=== PATIENT | male | born 1940 | race Caucasian/White ===

== ENCOUNTER 2016-10-07 10:23 | Day surgery (SDC) | payer OTHER ==
--- NOTE | ~2016-10-07 | OP ---
Record Of Operation [facility] [address] [place]. [address] NAME: GREGG MATTHEWS : 42 STATUS : REG [facility] [place] PAT#: [id number] AGE: 76 ADM/REG DATE : 10/07/16 MR#: [id number] REPORT SERV DATE: 10/07/16 DICTATED BY: SANDIE ARDON DATE: 10/07/16 REPORT STATUS : Draft TRANSCRIBED BY: MODL DATE: 10/07/16 DATE OF PROCEDURE: 10/07/2016 PREOPERATIVE DIAGNOSIS: Left 3rd digit osteomyelitis. POSTOPERATIVE DIAGNOSIS: Left 3rd digit osteomyelitis. PROCEDURE: Left 3rd digit amputation. SURGEON: Anirudh Ardon D.P.M. ANESTHESIA: General local anesthetic. ESTIMATED BLOOD LOSS: Minimal. COMPLICATIONS: None. INJECTABLES: Approximately 10 mL of a 1:1 mixture of Xylocaine plain and 0.5% Marcaine plain. MATERIALS: Include 3-0 nylon. SPECIMENS: Include 3rd digit with proximal margin. CULTURES: Include aerobic, anaerobic, acid fast, fungal, Gram stain. PROCEDURE IN DETAIL: Under mild sedation, the patient was brought to the operating room and placed on the table in supine position. Following general anesthesia, local anesthesia obtained about the patient's left foot. Left foot, ankle, and lower leg were scrubbed, prepped, and draped in usual aseptic manner. Attention was directed to the procedure. Procedure #1 is left 3rd digit amputation. Attention was directed to the patient's left 3rd digit where the probing to bone distal ulceration was visualized at the level of the distal tip of the left 3rd toe. At this time, a fishmouth sharp incision was made to the level of the distal interphalangeal joint. Sharp dissection continued down to the level of the PIPJ and sharp disarticulation ensued. All bleeders were cauterized and ligated as necessary. At this time, deep cultures were taken. There was no purulence. There was no odor. There was no necrosis noted at this level. At this time, pulse irrigation ensued and attention directed to closure. Full-thickness closure with 3-0 nylon to the incision site was performed. Specimens were sent of the 3rd toe and proximal margin which included the base of the intermediate phalanx. A well-padded sterile dressing and well-padded postoperative shoe was applied. The patient tolerated the procedure and anesthesia well, and was transferred to the recovery room with vital signs stable and vascular status intact to all toes. Following a period of postoperative monitoring, the patient will be discharged home with the following written and oral postoperative instructions. 1. Keep dressings clean, dry, and intact. Record Of Operation [facility] [address] [place]. [address] NAME: GREGG MATTHEWS : 42 STATUS : REG [facility]#: [id number] AGE: 76 ADM/REG DATE : 10/07/16 MR#: [id number] REPORT SERV DATE: 10/07/16 DICTATED BY: SANDIE ARDON DATE: 10/07/16 REPORT STATUS : Draft TRANSCRIBED BY: TAVON DATE: 10/07/16 2. Take medications as prescribed. 3. He will follow up with Dr. Ardon in 7 to 14 days. HO/TAVON Anirudh Ardon D.P.M. / [id number] CC: Vania Longoria M.D.
[~2016-10-07 10:23] MED LIST: ASAB PO; ATEN50 PO; CO Q-10200 MG PO; FLAXSEED OIL1000 MG PO; FLOMAX4 PO; HYDROCHLOROT25 MG; HYDROCHLOROT25 MG PO; HYDROCHLOROTHIAZIDE 25 MG; KRILLOIL; MIRALAX POWDER1 PKT PO; MULTIVITAMI1 PO; NORV10 PO; PREV15 PO; PRILOSEC OTC20 MG PO; PROPECIA1 MG PO; PROSCAR5 PO; VIAGRA50 MG PO; VITAMIN E; VITC500 PO; X5 PO; ZESTRIL10 MG PO; [UNRECOGNIZED DRUG - OTHER]; [UNRECOGNIZED DRUG - REMARK]
[2016-10-07 12:27] LABS: HEMATOCRIT 46.5 % (40.0-51.0); HEMOGLOBIN 15.4 g/dL (13.6-17.8)
[2016-10-07 12:40] LABS: BUN (BLOOD UREA NITROGEN) 18 MG/DL (6-23); CALCIUM, SERUM 8.6 MG/DL (8.5-10.4); CHLORIDE, SERUM 104 MMOL/L (96-112); CO2 (CARBON DIOXIDE) 28 MMOL/L (24-34); CREATININE 0.75 MG/DL (0.70-1.30); GFR AFRICAN AMERICAN 104 ML/MIN (>=60); GFR NON AFRICAN AMERICAN 90 ML/MIN (>=60); GLUCOSE, SERUM 117 MG/DL (60-99); POTASSIUM, SERUM 3.4 MMOL/L (3.5-5.3); SODIUM, SERUM 141 MMOL/L (135-148)
[2017-04-06] MEDS ORDERED: VITA10 PO (09:57)
[2017-04-06] MEDS ORDERED: VIT D3 (09:57)
[2017-04-06] MEDS ORDERED: ALEVE220 MG PO (10:32)
[2017-04-06] MEDS ORDERED: OXYCOD PO (10:33)
== END 2016-10-07 23:59 | disposition home health service (06) ==
LOC: MSC 10:23
PROVIDERS: Podiatrist Foot & Ankle Surgery
PROC: 0Y6U0Z3 Detachment at Left 3rd Toe, Low, Open Approach (ICD-10-PCS; principal; 2016-10-07 13:00)
DX: M86.172 Other acute osteomyelitis, left ankle and foot (principal); I25.10 Atherosclerotic heart disease of native coronary artery without angina pectoris; I73.9 Peripheral vascular disease, unspecified; K21.9 Gastro-esophageal reflux disease without esophagitis; I10 Essential (primary) hypertension; I45.10 Unspecified right bundle-branch block; G62.9 Polyneuropathy, unspecified; Z88.5 Allergy status to narcotic agent; Z88.1 Allergy status to other antibiotic agents; Z98.41 Cataract extraction status, right eye; Z98.42 Cataract extraction status, left eye; Z90.89 Acquired absence of other organs; Z98.52 Vasectomy status; Z98.890 Other specified postprocedural states
CPT/HCPCS: 80048; 85014; 85018; 87015; 87070; 87075; 87102; 87116; 87205; 88305; A9270-GY; J0690; J2405; J3010; J3370